=== PATIENT | female | born 1990 | race Caucasian/White ===

== ENCOUNTER 2016-09-16 17:00 | Emergency (ER) | payer OTHER ==
[2016-09-16 17:12] VITALS: BP 111/57; PULSE 70; RESP 18; TEMP 97.9; O2SAT 95
--- NOTE | 2016-09-16 17:30 | EDPHY ---
H & P Stated Complaint: FALL, HEAD/NECK PAIN Time Seen by Provider: 09/16/16 17:29 - Personal History LMP (Females 10-55): IUD In Place Current Tetanus/Diphtheria Vaccine: Yes Current Tetanus Diphtheria and Acellular Pertussis (TDAP): Yes - Medical/Surgical History Hx Asthma: Yes Hx Chronic Respiratory Disease: No Hx Diabetes: No Hx Cardiac Disease: No Hx Renal Disease: No Hx Cirrhosis: No Hx Alcoholism: No Hx HIV/AIDS: No Hx Splenectomy or Spleen Trauma: No Other PMH: pmh: LOWER BACK, RIB FX - Social History Smoking Status: Never smoked Constitutional: Initial Vital Signs Temperature (C) 36.6 C 09/16/16 17:01 Heart Rate 70 09/16/16 17:01 Respiratory Rate 18 09/16/16 17:01 Blood Pressure 111/57 L 09/16/16 17:01 O2 Sat (%) 95 09/16/16 17:01 O2 Delivery Mode Room Air Allergies/Adverse Reactions: strawberry Allergy (Verified 09/16/16 17:12) Home Medications: Medication Instructions Recorded Miscellaneous Medical Supply [NO 1 ea MISC AD 01/10/13 HOME MEDS] Hydrocodone/APAP 5/325 [[place] 1 - 2 each PO Q4-6PRN PRN #20 tab 09/16/16 5/325] Ibuprofen [Motrin] 800 mg PO Q8 #20 tab 09/16/16 Medical Decision Making ED Course/Re-evaluation: CHIEF COMPLAINT: Mechanical fall, head and neck pain. HISTORY OF PRESENT ILLNESS: This patient is a normally healthy 25 year old female who presents to the Emergency Department complaining of acute head and neck pain secondary to slipping and falling on the ice two days prior to arrival. She denies loss of consciousness at the time of the event. She complains of associated appetite loss, lightheadedness, and pressure to her occipital scalp. She denies gait ataxia, difficulty speaking or gripping, paresthesias, or other neurological concerns. No pertinent medical history. REVIEW OF SYSTEMS: A 10 point review of systems was performed and is negative with the exception of the elements mentioned in the history of present illness. PHYSICAL EXAM: HR, BP, O2 Sat, RR, temp noted General Appearance: Alert, well hydrated, appropriate, and non-toxic appearing. Head: Atraumatic without significant scalp tenderness or obvious injury Eyes: Pupils equal, round, reactive to light and accommodation, EOMI, no trauma , no injection. Ears: Clear bilaterally, no perforation, normal landmarks Nose: Atraumatic, no rhinorrhea, clear. Throat: There is no erythema or exudates, no lesions, normal tonsils, mucus membranes moist. Neck: Supple, 2+ carotid upstroke, no midline tenderness, bilateral muscular tenderness to palpation, no lymphadenopathy Respiratory: No retractions, no distress, no wheezes, and no accessory muscle use. Lungs are clear to auscultation bilaterally. Cardiovascular: Regular rate and rhythm, no murmurs, rubs, or gallops. Bilateral carotid, radial, dorsalis pedis, and posterior tibial pulses intact. Good capillary refill all extremities. Gastrointestinal: Abdomen is soft, nontender, non-distended, no masses, no rebound, no guarding, no peritoneal signs. Musculoskeletal: Normal active ROM of all extremities, atraumatic. Neurological: Alert, appropriate, and interactive. The patient has normal DTRs and non-focal cranial nerves, motor, sensory, and cerebellar exam. Skin: No rashes, good turgor, no nodules on palpation. Past medical history: Noncontributory. Past surgical history: Noncontributory. Family history: Noncontributory. Social history: Engaged, non-smoker. DIFFERENTIAL DIAGNOSIS: The differential diagnosis for the patient's head injury included but was not limited to concussion, skull fracture, intra-parenchymal contusion, subarachnoid , subdural and epidural hematoma. MEDICAL DECISION MAKING: This 25 year old female is normally healthy; she presents to the ED today due to headache and neck pain following a fall on ice two days [employer]. She complains of mild neurological symptoms suggestive of post-concussive syndrome including appetite loss and dizziness but no significant neurological deficits that would suggest acute cervical or head injury. I discussed with her my recommendation that we do not proceed with additional imaging at this time given the presentation and duration of symptoms. She is amenable to this and will be discharged home with [place] and Motrin instructions for pain and instructions to follow-up with neurologist for any remaining neurological deficits. Departure - Departure Disposition: Home, Routine, Self-Care Clinical Impression: Post concussion syndrome, Neck pain, Fall from slipping on ice Condition: Good Instructions: Post Concussion Syndrome (ED), Neck Pain (ED) Additional Instructions: 1. Take 800mg Motrin three times per day for the next three days for pain. 2. Take [place] as directed, as needed for severe pain. 3. If your symptoms do not completely subside within the next 3-5 days, call to schedule a follow-up appointment with a neurologist. We have referred you to Dr. Guerrero. 4. Return to the Emergency Department if you have trouble speaking or walking, feel like you may pass out, have a severe headache, or other serious concerns. Referrals: Glenna Edwards MD [Primary Care Provider] - As per Instructions Ruben Guerrero DO [Medical Doctor] - As per Instructions Prescriptions: Ibuprofen [Motrin] 800 mg PO Q8 #20 tab Hydrocodone/APAP 5/325 [[place] 5/325] 1 - 2 each PO Q4-6PRN PRN #20 tab PRN Reason: Pain, Moderate Report Scribed for: Juventino Hinson Report Scribed by: Cleo Farah Date of Report: 09/16/16 Time of Report: 17:31
== END 2016-09-16 17:41 | disposition home or self-care (01) ==
DX: S19.9XXA Unspecified injury of neck, initial encounter (principal); S06.0X0A Concussion without loss of consciousness, initial encounter; J45.909 Unspecified asthma, uncomplicated; W00.0XXA Fall on same level due to ice and snow, initial encounter